=== PATIENT | female | born 1975 | race Caucasian/White ===

== ENCOUNTER 2024-01-13 20:29 | Emergency (ER) | payer OTHER, SELFPAY ==
[2024-01-13 20:46] VITALS: BP 155/85; PULSE 131; RESP 18; TEMP 36.7; O2SAT 97; BMI 24.1
--- NOTE | 2024-01-13 21:59 | PC.NURSE ---
Medications pulled from Pyxis by this nurse and given to Lyudmila PEPE to administer to patient.
[2024-01-13] MEDS: dexamethasone 10 mg/mL INJ IVP (22:06)
[2024-01-13] MEDS: ondansetron 2 mg/ML SDV 2 mL 8 MG IVP (22:07)
[2024-01-13] MEDS: ketorolac 30 mg/mL INJ IVP (22:09)
--- NOTE | 2024-01-13 22:09 | W.ED.HA ---
HPI - Headache General: Chief Complaint: Headache Stated Complaint: Migraine Time Seen by Provider: 01/13/24 21:47 History of Present Illness: 48-year-old female with history of migraine headaches who presents to the emergency room with an intractable migraine. She has had nausea and vomiting. She does not Anything down for 2 days now. Her home medications have not been working. She says she used to get epidurals with Dr. Butcher in [place] at the pain clinic but has not been able to for that recently. No altered mental status. No focal motor deficits. No fevers. No chest pain. She is a bit tachycardic on presentation. Related Data Allergies Allergy/AdvReac Type Severity Reaction Status Date / Time No Known Allergies Allergy Verified 01/13/24 20:49 Review of Systems Narrative: Constitutional symptoms: Negative except as documented in HPI. Skin symptoms: Negative except as documented in HPI. Eye symptoms: Negative except as documented in HPI. ENMT symptoms: Negative except as documented in HPI. Respiratory symptoms: Negative except as documented in HPI. Cardiovascular symptoms: Negative except as documented in HPI. Gastrointestinal symptoms: Negative except as documented in HPI. Genitourinary symptoms: Negative except as documented in HPI. Musculoskeletal symptoms: Negative except as documented in HPI. Neurologic symptoms: Negative except as documented in HPI. Psychiatric symptoms: Negative except as documented in HPI. Endocrine symptoms: Negative except as documented in HPI. Physical Exam Narrative: EXAM NARRATIVE: General: Alert, no acute distress. Skin: Warm, dry. Head: Normocephalic, atraumatic. Neck: Supple, trachea midline. Eye: Extraocular movements are intact. Ears, nose, mouth and throat: Tacky oral mucosa Cardiovascular: Regular, tachycardic, normal peripheral perfusion. Respiratory: Lungs are clear to auscultation, respirations are non-labored, breath sounds are equal, Symmetrical chest wall expansion. Gastrointestinal: Soft, Nontender, Non distended Musculoskeletal: Normal ROM, no deformity. Neurological: Alert and oriented, No focal neurological deficit observed. Psychiatric: Cooperative, appropriate mood & affect. Course Vital Signs: Vital signs: Vital Signs Temperature 98.0 F 01/13/24 20:46 Pulse Rate 131 H 01/13/24 20:46 Respiratory Rate 18 01/13/24 20:46 Blood Pressure 157/88 01/13/24 22:22 Pulse Oximetry 97 01/13/24 20:46 Oxygen Delivery Me thod Room Air 01/13/24 20:46 MDM - Headache Medical Decision Making Assessment and plan: Intractable migraine Dehydration -IV fluids for dehydration -IV Zofran, IV Reglan, IV Benadryl, IV Norflex, IV Toradol and IV Decadron - Discharged home - Discussed plan with patient. Answered any questions. - Evaluation and treatment of this problem were appropriate in the emergency setting. No radiology studies performed this visit Discharge Plan Discharge Patient Disposition: Home Clinical Impression: Intractable migraine Condition: Stable Discharge Orders: Discharge ED (Routine); Ordered 01/13/24 Ordered By: Nini Roberts Referrals: Jossy Zambrano WHNP [Primary Care Provider] - Discharge Diet: Usual diet Discharge Activity: Increase activity as tolerated Patient Instructions: Migraine Headache (ED) Activity Restrictions/Additional Instructions: Thank you for choosing [facility] for your healthcare needs today. Please realize this is an emergency room and that we are providing you with a medical screening exam and this may not be complete and all inclusive of all the testing and or work up that you may need to determine your ailment or severity of your illness. You have been screened and evaluated and felt safe for discharge. Health conditions do change or evolve sometimes and as such it is important that you follow up with your Primary Doctor to be re checked, 3-5 days is a general good time frame for follow up. You are always welcome to return to the ED for re assessment if your symptoms are worsening or you have new concerns Coding Level of Care Code ED Centralized Traffic Control Operator for Wendy Manjarrez
[2024-01-13] MEDS: diphenhydrAMINE 50 mg/mL SDV 1mL IVP (22:11)
[2024-01-13] MEDS: metoclopramide 5 mg/mL SDV 2 mL 10 MG IVP (22:12)
[2024-01-13] MEDS: orphenadrine 30 mg/mL Inj 2 mL 60 MG IVP (22:15)
[2024-01-13] MEDS: sodium chloride 0.9% 1,000 ML 999 ML IV (22:20)
[2024-01-13 22:22] VITALS: BP 157/88
[2024-01-13 22:38] VITALS: BP 121/66; PULSE 92; O2SAT 100
[2024-01-13 23:57] VITALS: BP 128/83; PULSE 103; O2SAT 96
== END 2024-01-13 23:59 | disposition home or self-care (01) ==
PROVIDERS: Emergency Provider Emergency Medicine; PCP Nurse Practitioner Women's Health
DX: G43.919 Migraine, unspecified, intractable, without status migrainosus (principal)
CPT/HCPCS: 96361; 96374; 96375; 99284; J1100; J1200; J1885; J2360; J2405; J2765; J7030